=== PATIENT | female | born 1980 | race Caucasian/White ===

== ENCOUNTER → 2016-11-06 | Outpatient (CLI) | payer OTHER ==
[~2016-11-06] MED LIST: NORCO 325 MG-51 TAB PO
== END ==
LOC: COL.RAD 07:38
DX: R94.6 Abnormal results of thyroid function studies (principal)
CPT/HCPCS: A9516

== ENCOUNTER → 2017-02-11 | Outpatient (CLI) | payer OTHER | LOC: MC.RAD 02-09 08:40 | DX: Z12.31 Encounter for screening mammogram for malignant neoplasm of breast (principal) ==

== ENCOUNTER 2023-02-18 15:50 | Emergency (ER) | payer BC ==
[~2023-02-18] VITALS: Ht 160 cm; Wt 102.3 kg
[2023-02-18 16:26] LABS: BASO # 0.1 K/mm3 (0.0-0.2); BASO % 0.6 % (0.0-2.0); EOS # 0.2 K/mm3 (0.0-0.7); GRAN # 3.8 K/mm3 (1.4-6.5); GRAN % 47.8 % (42.2-75.2); HEMATOCRIT 38.7 % (37.0-47.0); HEMOGLOBIN 12.4 g/dl (12.5-16.0); LYMPH # 3.2 K/mm3 (1.2-3.4); MEAN CELL VOLUME 83 fl (80.0-100.0); MEAN CORPUSCULAR HEMOGLOBIN 27 pg (27-31); MEAN CORPUSCULAR HGB CONC 32 g/dl (33.0-37.0); MEAN PLATELET VOLUME 9.1 fl (7.4-10.4); MONO # 0.7 K/mm3 (0.1-0.6); MONO % 8.3 % (1.7-9.3); PLATELET COUNT 325 K/mm3 (130-400); RED BLOOD COUNT 4.67 M/mm3 (4.10-5.30); REDCELL DISTRIBUTION WIDTH-CV 16.5 % (11.5-14.5)
[2023-02-18 16:39] LABS: ALBUMIN 3.9 gm/dL (3.5-5.0); BILIRUBIN,TOTAL 0.4 mg/dL (0.2-1.2); CREATININE, serum 0.81 mg/dL (0.57-1.11); POTASSIUM 3.6 mmol/L (3.5-4.5); TOTAL PROTEIN 7.2 gm/dL (6.2-8.1)
[2023-02-18 18:16] VITALS: BP 140/90; PULSE 102; TEMP 97.9
== END 2023-02-18 18:16 | disposition home or self-care (01) ==
LOC: COL.ER 15:50
PROVIDERS: Physician Assistant
DX: I16.0 Hypertensive urgency (principal); Z28.310 Unvaccinated for COVID-19
CPT/HCPCS: J0360; J1920; J2060

== ENCOUNTER → 2023-06-29 | Outpatient (CLI) | payer BC | LOC: COL.RAD 10:40 | DX: N83.201 Unspecified ovarian cyst, right side (principal) ==